=== PATIENT | female | born 1995 | race Caucasian/White ===

== ENCOUNTER 2018-04-12 11:57 | Inpatient (IN) | payer BC ==
[2018-04-12] MEDS ORDERED: Misoprostol 25 MCG (1/4 of 100 MCG) Tab VAG PRN (12:50)
[2018-04-12] MEDS ORDERED: Vancomycin 500 MG SDV IV SCH (13:15)
[2018-04-12] MEDS ORDERED: Carboprost Tromethamine 250 MCG/1 ML Amp IM PRN (13:26)
[2018-04-12] MEDS ORDERED: Ondansetron 4 MG/2 ML SDV IV PRN (13:26)
[2018-04-12] MEDS ORDERED: Methylergonovine 0.2 MG/1 ML Amp IM PRN (13:26)
[2018-04-12] MEDS ORDERED: Misoprostol 400 MCG (4 X 100 MCG TAB) RECTAL PRN (13:26)
[2018-04-12] MEDS ORDERED: Tranexamic Acid 1,000 MG in Sodium Chloride 0.9% 100 ML IV PRN (13:26)
[2018-04-12] MEDS ORDERED: Sodium Chloride 0.9% 10 ML Syringe FLUSH PRN (13:26)
[2018-04-12] MEDS ORDERED: fentaNYL 100 MCG/2 ML SDV IVPUSH PRN (13:26)
[2018-04-12] MEDS ORDERED: Lidocaine 1% 30 ML SDV INJECT PRN (13:26)
[2018-04-12] MEDS ORDERED: Lactated Ringers 500 ML IV ONE (13:26)
[2018-04-12] MEDS ORDERED: Nalbuphine 10 MG/1 ML Vial IM ONE ×2 (13:28→16:00)
[2018-04-12] MEDS ORDERED: hydrOXYzine HCl 25 MG Tab PO PRN (13:29)
[2018-04-12] MEDS ORDERED: Oxytocin/Normal Saline 30 UNIT/500 ML BAG IV SCH (13:30)
[2018-04-12] MEDS ORDERED: Vancomycin 2 GM in Sodium Chloride 0.9% 500 ML IV ONE (13:30)
[2018-04-12] MEDS: Lactated Ringers 1,000 ML IV SCH ×3 (13:45→19:15)
[2018-04-12] MEDS ORDERED: ceFAZolin 2 GM in Premix Bag 1 BAG IV ONE (15:40)
[2018-04-12] MEDS ORDERED: Bupivacaine 0.75%/D5W 2 ML Amp ONE (18:03)
[2018-04-12] MEDS ORDERED: EPINEPHrine 1 MG/ML SDV ONE (18:03)
[2018-04-12] MEDS ORDERED: fentaNYL 100 MCG/2 ML SDV ONE (18:03)
--- NOTE | 2018-04-12 18:42 | PCM.PRNOTE ---
- Free Text/Narrative Note: Requested to provide analgesia to full term patient in severe pain. Upon entering the room, patient is sitting on edge of bed complaining of severe abdominal/pelvic pain and discomfort. Procedure was discussed with patient including adverse outcomes and expectations. Pt consented to analgesia, SAB/ IT. Pt placed into a proper sitting position. Landmarks for SAB/IT were identified and marked. Hands were washed and appropriate PPE was applied. Back was prepped with betadine x3. A sterile, transparent, fenestrated drape was applied. Excess betadine was removed. Using 3 mL of a 1% lidocaine solution , a skin wheel was placed at the L3/L4 interspace. A 24 ga (4 inch) Pencan spinal needle was inserted until positive for CSF. Negative for heme or paresthesias. Injected fentanyl 30 mcg, sufentanil 25 mcg, and 9 mg of a 0.75% bupivacaine solution with an epi wash. Pt was placed left lateral position for approximately 20 minutes. There were zero complications or adverse outcomes. Will continue to monitor. Procedure Date & Time: 04-12-18 [id number]
[2018-04-12] MEDS ORDERED: Benzocaine/Menthol 20%-0.5% Spray 56 GM Canister TOP PRN (20:31)
[2018-04-12] MEDS: Ibuprofen 800 MG Tab PO PRN (21:02)
[2018-04-12] MEDS: Docusate Sodium 100 MG Cap PO PRN (21:02)
[2018-04-13] MEDS ORDERED: ceFAZolin 1 GM in Premix Bag 1 BAG IV SCH (01:00)
--- NOTE | 2018-04-13 02:45 | DEL ---
DATE: 04/12/2018 PREPROCEDURE DIAGNOSES: 1. A 40 and 1/7 weeks' intrauterine . 2. 1, para 0. 3. Blood type A positive, rubella immune, group B Streptococcus positive, partially treated with vancomycin, but had a reaction, therefore, switched to Ancef. 4. History of anaphylactic reaction to Augmentin, and group B Streptococcus culture was resistant to clindamycin. 5. Obesity. 6. Vaginal bleeding in the first and second trimesters. 7. Right leg sciatica. 8. Left-sided rib pain. 9. Family history of spina bifida. 10.Gestational hypertension. POSTPROCEDURE DIAGNOSES: 1. A 40 and 1/7 weeks' intrauterine . 2. 1, now para 1-0-0-1. 3. Blood type A positive, rubella immune, group B Streptococcus positive, partially treated with vancomycin, but had a reaction, therefore, switched to Ancef. 4. History of anaphylactic reaction to Augmentin, and group B Streptococcus culture was resistant to clindamycin. 5. Obesity. 6. Vaginal bleeding in the first and second trimesters. 7. Right leg sciatica. 8. Left-sided rib pain. 9. Family history of spina bifida. 10.Status post spontaneous vaginal delivery. 11.Repair of first-degree laceration. 12.Gestational hypertension. BRIEF HISTORY: A 22-year-old female presented to the hospital in latent-stage labor with contractions every 5 to 7 minutes. Cervix had been unchanged from the night before, 3.5 cm dilated. Blood pressures were again elevated, and with the patient being in the latent stage labor, decision was made to proceed with Cytotec induction, which was performed without complications. After 6 hours of active stage labor and intrathecal for anesthesia, she was ready to push and needed to do that for only about 3 contractions in less than 10 minutes before successful delivery as outlined below. DESCRIPTION OF PROCEDURE: With the patient in dorsal lithotomy position, she delivered a viable male in the OA position over an intact perineum. Baby had a tight nuchal cord, which could not be reduced. Therefore, he was delivered via somersault maneuver and then untangled and placed upon mother's abdomen. Delayed cord clamping of 3 to 5 minutes was performed. Then, the 3- vessel umbilical cord was doubly clamped, cut by the father, and cord blood sample then obtained. Placenta then delivered by gentle cord traction and concomitant uterine massage, inspected and intact. Labia and vagina were inspected, and there was a first-degree laceration repaired with 3-0 Vicryl in the usual fashion and no complications. Fundal massage produced 1 more large clot, and bimanual massage verified appropriate uterine size, and bleeding was controlled. Mother tolerated procedure well and is initiating and skin to skin with the baby. COMPLICATIONS: None. ESTIMATED BLOOD LOSS: 300 mL. FINDINGS: Viable male infant, weighing 7 pounds 6 ounces, 3350 g. scores of 9 and 9. DISPOSITION: Mother and baby to stay in the room to initiate cares and . [facility] /[id number] MTDD
--- NOTE | 2018-04-13 08:46 | HP ---
SUBJECTIVE: Increased force and frequency of contractions. HISTORY OF PRESENT ILLNESS: A 22-year-old, 1, para 0, currently at 40 and 1/7 weeks' gestation, presents to the hospital complaining of regular contractions since approximately 5:30 this morning. She believes now occurring every 10 minutes and increased intensity. No leakage of fluid or vaginal bleeding. movement has been good. No symptoms of preeclampsia. No dysuria. No other significant symptoms to report. LABORATORY DATA: Blood type O positive. Antibody screen negative. Rubella immune. Syphilis serology nonreactive. Urine culture negative. Hepatitis B negative. HIV negative. Gonorrhea and Chlamydia negative. TSH 0.87. Hepatitis C nonreactive. Wet prep negative. Most recent hemoglobin 11.7 in the clinic on 01/18/2018, also noted to be normal yesterday. Group B strep positive status has been noted. Ultrasound findings, dating is by last menstrual period of 07/05/2017. This correlates with early ultrasound on 10/20/2017 and 19 week 3 day ultrasound on 11/22/2017 showing normal anatomy and a posterior placenta. PAST MEDICAL HISTORY: Body piercings of her ears only, some tattoos. No IV drug use or history of blood transfusions. Chronic headaches that resolved before high school, obesity, ovarian cyst. Menarche at age 14 or 15. Menses every 30 days with flow lasting 4 to 5 days. Reactive airway disease as a child. Mild scoliosis and some various musculoskeletal injuries. PAST SURGICAL HISTORY: Thumb reconstruction on the left side in 2009 and tonsillectomy. FAMILY HISTORY: Mother alive with obesity and ovarian cyst. Father alive with asthma and obesity. Sister alive with asthma and obesity. Brother alive with obesity and spina bifida occulta. Maternal grandmother with scoliosis. Maternal grandfather is alive, but unknown to the patient. Paternal grandmother is with lung cancer possibly, she was noted to be a smoker. Paternal grandfather is alive with diabetes. SOCIAL HISTORY: The patient does not use any tobacco, alcohol, or drugs. 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 He has 2 sons and 1 daughter, who live with him part-time. Ilan has hypertension and asthma. His family history is remarkable for his mother dying of a heart attack at age 52 and also having hypertension. His father has hypertension and history of alcohol abuse and sleep apnea. Ilan works as a santa and rancher. ALLERGIES: Augmentin and sulfa drugs are reported to cause hives. MEDICATIONS: 1. Folic acid 1 mg daily. 2. vitamin 1 daily. 3. Tylenol 500 mg every 6 hours as needed for pain. OBJECTIVE: General: Pleasant, well-appearing 22-year-old female, who appears her stated age. Vital Signs: Reviewed in [facility] and she has persistent elevated blood pressures in the 140s over 90s today. HEENT: Grossly unremarkable. Heart: Regular without murmur. Lungs: Clear to auscultation bilaterally. Abdomen: Soft and nontender. Contractions palpate mild. Fundal height appropriate for gestational age. heart tones 130 beats per minute at baseline with moderate [id number]-[id number] variability. Clay showing contractions approximately every 5 to 7 minutes. Cervix is 3.5 cm dilated, 80% effaced, posterior, and soft. Extremities: Trace edema. No erythema or tenderness noted. Skin: Warm, dry, and appropriate for race. ASSESSMENT: 1. A 40 and 1/7 weeks' intrauterine . 2. Gestational hypertension. 3. Latent stage labor. 4. Family history of spina bifida. 5. Vaginal bleeding in the 1st and 2nd trimesters. 6. Right leg sciatica. 7. Left-sided rib pain in . 8. Group B Streptococcus positive status with resistance to clindamycin. 9. Blood type A positive, rubella immune. PLAN: At this time, the patient will be admitted to the hospital with Cytotec for induction. Anticipate use of vancomycin for treatment of the group B strep. Anticipating that she will not need much for induction medications, but we will intervene with Pitocin, artificial rupture, and other active labor management as indicated. At this time, repeat urine protein-creatinine ratio, but we will hold off on checking any other [facility] labs until we see what this first one shows. The patient's questions were answered, and she was in agreement with the plan. [facility] /[id number] MTDD
[2018-04-13] MEDS: Ferrous Sulfate 325 MG Tab PO SCH (08:55)
[2018-04-13] MEDS: Prenatal Multivitamin with Calcium/Folic Acid/Iron Tab PO SCH (08:55)
[2018-04-13] MEDS: Docusate Sodium 100 MG Cap PO PRN ×2 (08:55→19:48)
[2018-04-13] MEDS: Ibuprofen 800 MG Tab PO PRN ×2 (08:55→19:48)
--- NOTE | 2018-04-13 10:00 | PN ---
DATE: 04/13/2018 SUBJECTIVE: A 22-year-old 1, now para 1, status post uncomplicated vaginal delivery last night, is doing well. She is ambulating and tolerating regular diet, passing flatus, and voiding without difficulties. No chest pain or shortness of breath. No symptoms of preeclampsia. Bleeding has been moderate. She is . No other acute concerns. OBJECTIVE: Vital Signs: Blood pressure this morning 131/69, highest of record is 162/66 in the past 24 hours; otherwise, majority has been in the 120s over 60s. Heart: Regular without murmur. Lungs: Clear to auscultation bilaterally. Abdomen: Soft and nontender. Fundus is firm and below the umbilicus. Extremities: Trace edema. No erythema or tenderness is seen. LABORATORY DATA: Hemoglobin is down to 10.4 from a previous 11.3; platelets down to 226, previously 225. Urine protein-creatinine ratio 0.17. ASSESSMENT: 1. Post vaginal delivery day #1, doing well. 2. Gestational hypertension. Blood pressures have resolved. No lab tests consistent with preeclampsia. 3. Obesity. 4. mother. 5. Other diagnoses as per admission history and physical. PLAN: Continue routine cares and anticipate discharge home tomorrow as long as all continues to go well. The patient has had her questions answered. [facility] /[id number]
[2018-04-13] MEDS ORDERED: fentaNYL 100 MCG/2 ML SDV ITHECAL ONE (11:58)
[2018-04-13] MEDS ORDERED: EPINEPHrine 1 MG/ML SDV ONE (11:58)
[2018-04-13] MEDS ORDERED: Bupivacaine 0.75%/D5W 2 ML Amp INJECT ONE (11:58)
[2018-04-13] MEDS: Acetaminophen 325 MG Tab PO PRN ×2 (13:46→19:49)
[2018-04-13] MEDS: Simethicone 80 MG Tab.Chew PO PRN (19:48)
[2018-04-14] MEDS: Simethicone 80 MG Tab.Chew PO PRN (05:09)
[2018-04-14] MEDS: Ibuprofen 800 MG Tab PO PRN (05:09)
[2018-04-14] MEDS: Acetaminophen 325 MG Tab PO PRN (05:10)
[2018-04-14] MEDS: Ferrous Sulfate 325 MG Tab PO SCH (09:07)
[2018-04-14] MEDS: Docusate Sodium 100 MG Cap PO PRN (09:07)
[2018-04-14] MEDS: Prenatal Multivitamin with Calcium/Folic Acid/Iron Tab PO SCH (09:07)
== END 2018-04-14 10:45 | disposition home or self-care (01) | DRG 560 ==
LOC: DL.OBCHECK 11:57 → DL.OB 13:26 → OBSVTOIN 19:50 → DL.OB 19:50
PROVIDERS: ADMIT Family Medicine; ATTEND Family Medicine
PROC: 3E033VJ Introduction of Other Hormone into Peripheral Vein, Percutaneous Approach (ICD-10-PCS; principal; 2018-04-12)
PROC: 3E0R3BZ Introduction of Anesthetic Agent into Spinal Canal, Percutaneous Approach (ICD-10-PCS; principal; 2018-04-12)
PROC: 10E0XZZ Delivery of Products of Conception, External Approach (ICD-10-PCS; principal; 2018-04-12)
PROC: 0UQMXZZ Repair Vulva, External Approach (ICD-10-PCS; principal; 2018-04-12)
PROC: 6A550ZT Pheresis of Cord Blood Stem Cells, Single (ICD-10-PCS; 2018-04-12)
DX: O13.4 Gestational [pregnancy-induced] hypertension without significant proteinuria, complicating childbirth (principal); Z3A.40 40 weeks gestation of pregnancy; Z37.0 Single live birth; O99.824 Streptococcus B carrier state complicating childbirth; Z67.40 Type O blood, Rh positive; O69.81X0 Labor and delivery complicated by cord around neck, without compression, not applicable or unspecified; O99.214 Obesity complicating childbirth; O70.0 First degree perineal laceration during delivery; Z68.42 Body mass index [BMI] 45.0-49.9, adult; Z88.2 Allergy status to sulfonamides; Z82.0 Family history of epilepsy and other diseases of the nervous system; O26.893 Other specified pregnancy related conditions, third trimester; M54.31 Sciatica, right side
CPT/HCPCS: 36415; 59025; 59300; 59409; 82570; 84156; 85027; A9270-GY; J0171; J0690; J2300; J2405; J2590; J3010; J3370; J7040; J7120

== ENCOUNTER 2020-01-29 00:08 | Inpatient (IN) | payer BC, MEDICAID ==
[~2020-01-29 00:08] MED LIST: Acetaminophen 325 MG Tab PO PRN; Carboprost Tromethamine 250 MCG/1 ML Amp IM PRN; Lactated Ringers 1,000 ML IV SCH; Lidocaine 1% 30 ML SDV INJECT PRN; Methylergonovine 0.2 MG/1 ML Amp IM PRN; Misoprostol 400 MCG (4 X 100 MCG TAB) RECTAL PRN; Ondansetron 4 MG/2 ML SDV IVPUSH PRN; Oxytocin/0.9 % Sodium Chloride 30 UNIT/500 ML BAG IV SCH; Oxytocin/Normal Saline 30 UNIT/500 ML BAG IV SCH; Sodium Chloride 0.9% 10 ML Syringe FLUSH PRN; Tranexamic Acid 1,000 MG in Sodium Chloride 0.9% 100 ML IV PRN; fentaNYL 100 MCG/2 ML SDV IVPUSH PRN; hydrOXYzine HCl 25 MG Tab PO ONE
[2020-01-29] MEDS ORDERED: Misoprostol 50 MCG (1/2 of 100 MCG) Tab VAG ONE (00:30)
[2020-01-29] MEDS: Lactated Ringers 1,000 ML IV SCH ×2 (01:40→03:12)
[2020-01-29] MEDS ORDERED: fentaNYL 100 MCG/2 ML SDV ONE (03:18)
[2020-01-29] MEDS ORDERED: EPINEPHrine 1 MG/1 ML Amp ONE (03:18)
[2020-01-29] MEDS ORDERED: diphenhydrAMINE 25 MG Tab PO PRN (04:01)
[2020-01-29] MEDS ORDERED: Misoprostol 25 MCG (1/4 of 100 MCG) Tab VAG PRN (04:30)
[2020-01-29] MEDS ORDERED: Simethicone 80 MG Tab.Chew PO PRN (05:39)
[2020-01-29] MEDS ORDERED: Docusate Sodium 100 MG Cap PO PRN (05:39)
[2020-01-29] MEDS ORDERED: Benzocaine/Menthol 20%-0.5% Spray 56 GM Canister TOP PRN (05:39)
--- NOTE | 2020-01-29 05:40 | PN ---
DATE: 01/29/2020 SUBJECTIVE: A 24-year-old 2, para 1-0-0-1, currently at 40 and 1/7 week gestation presented to the hospital for induction of labor and was actually 5 cm dilated on admission and contractions about every 7 minutes and irregular. Pitocin was started and currently is up to 6. During this time, she also recently had her intrathecal placed and is currently comfortable. Prepared to proceed with artificial rupture of membranes to get things progressing. OBJECTIVE: Vital Signs: Blood pressure 140/53, temperature afebrile, pulse 91. Baseline heart rate 120 beats per minute with moderate [id number] variability. No accelerations since the intrathecal. Contractions about every 2-1/2 to 4 minutes. Pitocin is at 6. Cervical exam; 8 cm dilated, 80% effaced, -2 station. Artificial rupture of membranes performed with small amount of clear fluid resulting and the patient tolerated well. After that, baby's variability returned, and we started having accelerations again and baseline changed to 130. Approximately 10 minutes later, the patient had a couple of deep variables and nurse checked her; she is now complete in 0 station. ASSESSMENT: 1. 40 and 1/7 week intrauterine . 2. 2, para 1-0-0-1. 3. Anemia of . 4. Obesity complicating . 5. History of poor growth this with prior growth ultrasound at 7th percentile. Last ultrasound at 20th percentile. 6. History of gestational hypertension. 7. Blood type A positive, rubella immune, group B strep negative. 8. Family history of spina bifida. 9. History of depression. 10.History of spotting in the 1st trimester. PLAN: At this time, we will make sure the warmer and all of the delivery equipment is ready to go and we will let her labor down for just a little bit; however, she only pushed about 3 times with her last delivery, so we will anticipate probably getting her pushing sooner rather than later so that her delivery can be completed. [facility] /[id number]
--- NOTE | 2020-01-29 06:49 | DEL ---
DATE: 01/29/2020 PREPROCEDURE DIAGNOSES: 1. 2, para 1-0-0-1 at 40-1/7 weeks estimated gestational age. 2. Anemia of . 3. Obesity. 4. Poor growth, resolved. 5. History of gestational hypertension, prior . 6. Blood type A positive, rubella immune, and group B strep negative. 7. Family history of spina bifida. 8. History of depression. 9. History of spotting in the first trimester. POSTPROCEDURE DIAGNOSES: 1. 2, now para 2-0-0-2 at 40-1/7 weeks estimated gestational age. 2. Anemia of . 3. Obesity. 4. Poor growth, resolved. 5. History of gestational hypertension, prior . 6. Blood type A positive, rubella immune, and group B strep negative. 7. Family history of spina bifida. 8. History of depression. 9. History of spotting in the first trimester. 10.Delivery of viable female via spontaneous vaginal delivery without complications. BRIEF HISTORY: A 24-year-old female admitted to the hospital just after midnight for planned induction of labor due to postdates . The patient had already started into spontaneous labor on her own, but contractions were irregular and mild, only every 3 to 7 minutes, so she waited until her scheduled time to come in. On admission, she was found to be 5 cm dilated, and we changed our plan to use Pitocin for labor augmentation instead of Cytotec for induction. The patient was checked in. COVID test was negative. Laboratories were drawn, and Pitocin started and got up to 6, and she did receive an intrathecal for anesthesia. Once she got to 6 cm, 80%, and -2. I then came in and performed artificial rupture of membranes at 4:35 a.m. with return of small amount of clear fluid. About 4:50 a.m., she was complete and delivered at 5:15, and she only needed to push through 2 contractions and had a rapid spontaneous vaginal delivery with details below. DESCRIPTION OF PROCEDURE: The patient in dorsal lithotomy position, delivered a viable female infant in the DEVORAH position over intact perineum. The umbilical cord was tangled and caught around the neck and arm, and baby untangled as she was dried and stimulated. Nurses performed some bulb suction and then baby placed up on mother's abdomen while we did delayed cord clamping. Labia and vagina were inspected, and she had a small anterior laceration that was hemostatic and 1 extremely small posterior laceration was also hemostatic, and so after the cord stopped pulsating and mother was comfortable with clamping, the umbilical cord was doubly clamped and cut, and cord blood sample then obtained. Placenta was delivered by gentle cord traction and concomitant uterine massage, inspected and intact. Labia and vagina inspected again. The posterior laceration could no longer be seen since it stopped bleeding. It was really unidentifiable. The anterior laceration remained hemostatic and did not need repair. The patient tolerated procedure well, and there were no complications. FINDINGS: Viable female , weight 3350 g, 7 pounds 6 ounces, score of 8 and 9. ESTIMATED BLOOD LOSS: 350 mL. COMPLICATIONS: None. DISPOSITION: Mother and baby to stay in the room and initiate bonding and . I will be back to examine the baby a little bit later this morning. [facility] /[id number]
[2020-01-29] MEDS: Prenatal Multivitamin with Calcium/Folic Acid/Iron Tab PO SCH (12:03)
[2020-01-29] MEDS: Ferrous Sulfate 325 MG Tab PO SCH (12:03)
[2020-01-29] MEDS: Ibuprofen 800 MG Tab PO PRN ×2 (12:16→20:31)
[2020-01-29] MEDS: Acetaminophen 325 MG Tab PO PRN ×2 (17:31→21:47)
[2020-01-30] MEDS: Acetaminophen 325 MG Tab PO PRN ×2 (04:34→09:39)
[2020-01-30] MEDS: Ibuprofen 800 MG Tab PO PRN (04:35)
[2020-01-30] MEDS: Prenatal Multivitamin with Calcium/Folic Acid/Iron Tab PO SCH (09:39)
[2020-01-30] MEDS: Ferrous Sulfate 325 MG Tab PO SCH (09:39)
[2020-01-30] MEDS ORDERED: Sodium Chloride 0.9% 20 ML SDV ONE (10:29)
[2020-01-30] MEDS ORDERED: EPINEPHrine 1 MG/1 ML Amp ONE (10:29)
[2020-01-30] MEDS ORDERED: fentaNYL 100 MCG/2 ML SDV ITHECAL ONE (10:29)
== END 2020-01-30 10:30 | disposition home or self-care (01) | DRG 560 ==
LOC: DL.OBCHECK 00:08 → DL.OB 00:11 → OBSVTOIN 05:15 → DL.OB 05:15
PROVIDERS: ADMIT Family Medicine; ATTEND Family Medicine
PROC: 10E0XZZ Delivery of Products of Conception, External Approach (ICD-10-PCS; principal; 2020-01-29)
PROC: 10907ZC Drainage of Amniotic Fluid, Therapeutic from Products of Conception, Via Natural or Artificial Opening (ICD-10-PCS; 2020-01-29)
PROC: 3E0R3BZ Introduction of Anesthetic Agent into Spinal Canal, Percutaneous Approach (ICD-10-PCS; 2020-01-29)
PROC: 00HU33Z Insertion of Infusion Device into Spinal Canal, Percutaneous Approach (ICD-10-PCS; 2020-01-29)
DX: O48.0 Post-term pregnancy (principal); Z37.0 Single live birth; Z3A.40 40 weeks gestation of pregnancy; O99.02 Anemia complicating childbirth; D64.9 Anemia, unspecified; O99.214 Obesity complicating childbirth; E66.9 Obesity, unspecified; Z11.59 Encounter for screening for other viral diseases; Z28.82 Immunization not carried out because of caregiver refusal
CPT/HCPCS: 01967; 36415; 59409; 85027; A9270-GY; J0171; J2405; J2590; J3010; J7120; U0002